=== PATIENT | female | born 1975 | race Caucasian/White ===

== ENCOUNTER → 2020-03-29 08:37 | Outpatient (CLI) | payer BC, SELFPAY ==
[2020-03-29 09:39] LABS: Add Manual Diff / Slide Review NO; Basophils Absolute Auto 0 /uL (0-100); Basophils Percent Auto 1.3 % (0-2); Eosinophils Absolute Auto 100 /uL (0-450); Eosinophils Percent Auto 2.1 % (2-4); Hematocrit 40.1 % (36-46); Hemoglobin 12.8 g/dL (12.0-16.0); Lymphocytes Absolute Auto 1100 /uL (1100-4500); Mean Corpuscular HGB Conc 31.9 % (30-36); Mean Corpuscular Hemoglobin 27.6 PG (26-34); Mean Corpuscular Volume 86.6 fL (80-100); Monocytes Absolute Auto 300 /uL (0-900); Monocytes Percent Auto 9.3 % (3-14); Neutrophils Absolute Auto 2000 /uL (1500-7000); Neutrophils Percent Auto 57.3 % (50-75); Platelet Count 203 X10^3/uL (150-400); Red Blood Cell Count 4.63 X10^6/uL (4.0-5.2); Red Cell Distribution Width 13.7 % (11.6-14.8); White Blood Cell Count 3.5 X10^3/uL (4.5-11.0)
[2020-03-29 09:47] LABS: HEMOLYSIS < 15 (0-50); Iron 65 ug/dL (37-170)
[2020-03-29 09:57] LABS: Percent Iron Saturation 19 % (15-50); Total Iron Binding Capacity 335 ug/dL (265-497); Transferrin 244 mg/dL (206-381)
[2020-03-29 10:02] LABS: Alanine Aminotransferase 12 IU/L (<35); Albumin 4.1 g/dL (3.5-5.0); Albumin Globulin Ratio 1.6 (1.0-2.8); Alkaline Phosphatase 49 U/L (38-126); Aspartate Aminotransferase 22 IU/L (14-36); BUN Creatinine Ratio 8.5 (6-22); Bilirubin Total 0.9 mg/dL (0.2-1.3); Blood Urea Nitrogen 7 mg/dL (7-17); Calcium 9.2 mg/dL (8.4-10.2); Carbon Dioxide 28 mmol/L (22-32); Chloride 106 mmol/L (98-107); Cholesterol 166 mg/dL (140-199); Estimated Glomerular Filt Rate > 60.0 mL/min (>60); Globulin 2.6 g/dL (1.7-4.1); Glucose 82 mg/dL (70-100); HDL Cholesterol 62 mg/dL (40-60); HEMOLYSIS < 15 (0-50); LDL Cholesterol Calculated 94 mg/dL (<100); Potassium 4.5 mmol/L (3.4-5.1); Sodium 138 mmol/L (137-145); Total Protein 6.7 g/dL (6.3-8.2); Triglycerides 52 mg/dL (35-150)
[2020-03-29 10:17] LABS: TSH w/ Reflex to FT4 1.83 uIU/mL (0.47-4.68)
[2020-03-29 10:37] LABS: Ferritin 19 ng/mL (6-137)
== END ==
PROVIDERS: PCP Family Medicine; Referring Provider Family Medicine; Visit Provider Family Medicine
DX: Z00.00 Encounter for general adult medical examination without abnormal findings (principal); D50.8 Other iron deficiency anemias; Z83.3 Family history of diabetes mellitus
CPT/HCPCS: 36415; 80053; 80061; 82728; 83036; 83540; 83550; 84443; 85025

== ENCOUNTER → 2020-04-21 08:57 | Outpatient (CLI) | payer BC, SELFPAY ==
--- NOTE | 2020-04-21 09:00 | DI.MG.S_ITS ---
BILATERAL DIGITAL SCREENING MAMMOGRAM 3D/2D WITH CAD: 04/21/2020 CLINICAL: Routine screening. Comparison is made to exams dated: 08/20/2016 mammogram, 10/27/2018 mammogram, and 10/29/2018 mammogram - outside location. The tissue of both breasts is heterogeneously dense. This may lower the sensitivity of mammography. Current study was also evaluated with a Computer Aided Detection (CAD) system. No significant masses, calcifications, or other findings are seen in either breast. There has been no significant interval change. IMPRESSION: NEGATIVE There is no mammographic evidence of malignancy. A 1 year screening mammogram is recommended. This exam was interpreted at Station ID: [id number]. NOTE: For mammograms, a report in lay terms will be sent to the patient. Approximately 15% of breast malignancies will not be visualized mammographically. In the management of a palpable breast mass, a negative mammogram must not discourage biopsy of a clinically suspicious lesion. Electronically Signed By: Anthony Araujo M.D., jr/roque:04/23/2020 09:50:49 letter sent: Normal Exam ACR BI-RADS Category 1: Negative 3341F
== END ==
PROVIDERS: PCP Family Medicine; Referring Provider Family Medicine; Visit Provider Family Medicine
DX: Z12.31 Encounter for screening mammogram for malignant neoplasm of breast (principal)
CPT/HCPCS: 77063; 77067

== ENCOUNTER → 2020-06-08 13:28 | Outpatient (CLI) | payer BC, SELFPAY ==
[2020-06-08] MEDS: COVID-19 VACC, Ad26(JANSSEN)/PF 0.5 ML IM (13:34)
== END ==
PROVIDERS: PCP Family Medicine; Visit Provider Internal Medicine
DX: Z23 Encounter for immunization (principal)
CPT/HCPCS: 0031A; 91303

== ENCOUNTER 2020-11-04 16:54 | Emergency (ER) | payer BC, SELFPAY ==
[2020-11-04 16:58] VITALS: BP 136/67; PULSE 60; RESP 18; TEMP 36.7; O2SAT 100
--- NOTE | 2020-11-04 17:01 | DI.RAD.S_ITS ---
PROCEDURE: XR THORACIC SPINE 3V INDICATIONS: fall TECHNIQUE: 3 views of the thoracic spine were acquired. COMPARISON: None. FINDINGS: Bones: No fractures or dislocations. No suspicious bony lesions. 12 pairs of ribs are noted, and appear intact where visualized. Accentuated thoracic kyphosis is seen. Minimal levoconvex thoracolumbar scoliotic curvature is seen. Soft tissues: No paravertebral stripe thickening. IMPRESSION: No significant acute plain film abnormality is seen. If there is point tenderness (or other clinical suspicion for a fracture not seen on these images) then a dedicated CT could be considered for further evaluation, if clinically appropriate. Dictated by: Tr Linares M.D. on 11/04/2020 at 16:45 Approved by: Tr Linares M.D. on 11/04/2020 at 16:46
--- NOTE | 2020-11-04 19:30 | ED.BACK ---
HPI - Back Pain/Injury General Chief Complaint: Back Pain/Injury Stated Complaint: FALL 10/18/20 BACK PAIN Time Seen by Provider: 11/04/20 19:29 Source: patient Mode of arrival: Ambulatory Limitations: no limitations History of Present Illness HPI Narrative: This is a 45-year-old female who comes with complaint of back pain patient states on October 18 she was pushing a vehicle up held help started when she slipped with her feet and hyperextended her back in the thoracic region. She has had some localized tenderness in the midthoracic region. Patient states the 1st week she had pain despite ibuprofen. She continues to have pain but when she takes ibuprofen is not painful. She came in today because it has continued and has not completely resolved although it is feeling better. She denies numbness, tingling or weakness. No loss bowel or bladder control. No other symptoms are noted or injuries. She denies any prior back issues of any significance. Denies any major medical issues besides iron-deficiency anemia. No allergies to medications. Related Data Home Medications Medication Instructions Recorded Confirmed No Known Home Medications 03/06/20 03/29/20 Allergies Allergy/AdvReac Type Severity Reaction Status Date / Time No Known Drug Allergies Allergy Unverified 03/29/20 08:24 Review of Systems Review of Systems ROS Unobtainable: All systems reviewed & are unremarkable except as noted in HPI and below Patient History Medical History Dysmenorrhea Family history of diabetes mellitus Iron deficiency anemia Preventative health care Surgical History H/O arthroscopy of left knee Social History Smoking Status: Former smoker Smoking Status: Former smoker alcohol intake frequency: 0-2 drinks per day Exam Narrative Exam Narrative: GENERAL: Alert and oriented x three, female in mild distress. HEENT: Head normocephalic, atraumatic, EOMI, pupils reactive, face symmetric, moist mucous membranes NECK: Supple, full range of motion CARDIOVASCULAR: Regular rate and rhythm without murmurs, rubs or gallops. RESPIRATORY: Breath sounds equal bilaterally, no wheezes rales or rhonchi. ABDOMEN: Soft, nontender. Normoactive bowel sounds all 4 quadrants. No guarding or rebound, rigidity, no mass : No CVA tenderness BACK: No cervical, thoracic or lumbar vertebral point tenderness. Patient has normal range of motion. Patient's gait is normal. Rectal exam is deferred. Muscle strength is 5/5 in lower extremities, DTRs are 2/4 and lower extremities. Dorsalis pedis and tibialis pulses are 2+ and lower extremities. Sensation is intact in the lower extremities. EXTREMITIES: Normal range of motion, no clubbing or edema. Neurovascularly intact NEUROLOGICAL: Cranial nerves II through XII grossly intact. Moving all extremities SKIN: Warm, dry, no petechiae, no rashes or lesions. Initial Vital Signs Initial Vital Signs: Vital Signs Temperature 98.1 F 11/04/20 16:58 Pulse Rate 60 11/04/20 16:58 Respiratory Rate 18 11/04/20 16:58 Blood Pressure 136/67 11/04/20 16:58 Pulse Oximetry 100 11/04/20 16:58 Course Orders Ordered: ED Orders 11/04/20 17:01 XR thoracic spine 3V Stat Vital Signs Vital signs: Vital Signs - 8 hr 11/04/20 16:58 Temperature 98.1 F Pulse Rate 60 Respiratory Rate 18 Blood Pressure 136/67 Pulse Oximetry 100 MDM - Back Pain/Injury Imaging Data thoracic xray: Radiologist's Impression: [place] [address] XRay Report Signed Patient: Layne Abbott MR#: [id number] : 1975 Acct:[id number] Age/Sex: 45 / F Date of Service: 11/04/20 Loc: ED Accession Number: [id number] ?? Procedure: XR thoracic spine 3V Ordering Provider: Angel Grajeda D.O. PROCEDURE:? XR THORACIC SPINE 3V ? INDICATIONS:? fall ? TECHNIQUE:? 3 views of the thoracic spine were acquired.? ? COMPARISON:? None. ? FINDINGS:? ? Bones:? No fractures or dislocations.? No suspicious bony lesions.? 12 pairs of ribs are noted, and appear intact where visualized.? Accentuated thoracic kyphosis is seen.? Minimal levoconvex thoracolumbar scoliotic curvature is seen.? ? Soft tissues:? No paravertebral stripe thickening.? ? ? IMPRESSION:? No significant acute plain film abnormality is seen. ? If there is point tenderness (or other clinical suspicion for a fracture not seen on these images) then a dedicated CT could be considered for further evaluation, if clinically appropriate. ? ? Dictated by: Tr Linares M.D. on 11/04/2020 at 16:45 ? ? Approved by: Tr Linares M.D. on 11/04/2020 at 16:46?? MDM Narrative Medical decision making narrative: 45-year-old female with a fall on the 17 of October with hyperextension type injury with continued localized thoracic discomfort which has been slowly improving. Patient states pain is still present when she takes ibuprofen resolved which is improved but was still present even when she took ibuprofen. Patient has normal range of motion. She does not have any specific worsening factors. Patient does not have any red flag symptoms. X-ray of thoracic region is negative and she notes that the discomfort is over the T10 region but on unable to reproduce it with palpation of the spine. Plan for continued watchful waiting. If patient continues to have resolution of her symptoms does not require any additional intervention. She continues to have pain follow-up with primary care and to return here for red flag symptoms. Discharge Plan Departure Patient Disposition: Home Clinical Impression: Back pain, thoracic Instructions: Thoracic Back Pain Activity Restrictions/Additional Instructions: Follow-up with your physician in the next week if you are not continuing to have improvement. Call for an appointment. Your x-ray imaging today does not show any acute changes to the bone. You do have some mild thoracic kyphosis and scoliotic curvatures but these are typically chronic and common changes to the bone structure You may continue with ibuprofen up to 800 mg every 8 hours as needed for pain if necessary. Continue with gentle stretching and range of motion as tolerated. Please return for fevers, sudden or worsening back pain, numbness, weakness loss of sensation, loss of bowel or bladder control, difficulty using her extremities or other new or concerning symptoms. Prescriptions: No Action No Known Home Medications RF: 0 Referrals: Karel Morocho DO [Primary Care Provider] -
== END 2020-11-04 19:51 | disposition home or self-care (01) ==
PROVIDERS: Emergency Provider Emergency Medicine; PCP Family Medicine
DX: M54.6 Pain in thoracic spine (principal)
CPT/HCPCS: 72072; 99281; 99283

== ENCOUNTER → 2021-03-20 08:01 | Outpatient (CLI) | payer BC, SELFPAY ==
[2021-03-20 10:11] LABS: Add Manual Diff / Slide Review NO; Basophils Absolute Auto 0 /uL (0-100); Basophils Percent Auto 1.2 % (0-2); Eosinophils Absolute Auto 100 /uL (0-450); Eosinophils Percent Auto 2.3 % (2-4); Hematocrit 35.4 % (36-46); Hemoglobin 11.8 g/dL (12.0-16.0); Lymphocytes Absolute Auto 800 /uL (1100-4500); Lymphocytes Percent Auto 24.9 % (25-40); Mean Corpuscular HGB Conc 33.4 % (30-36); Mean Corpuscular Hemoglobin 27.9 PG (26-34); Mean Corpuscular Volume 83.6 fL (80-100); Monocytes Absolute Auto 300 /uL (0-900); Monocytes Percent Auto 9.1 % (3-14); Neutrophils Absolute Auto 2000 /uL (1500-7000); Neutrophils Percent Auto 62.5 % (50-75); Platelet Count 173 X10^3/uL (150-400); Red Blood Cell Count 4.23 X10^6/uL (4.0-5.2); Red Cell Distribution Width 14.6 % (11.6-14.8); White Blood Cell Count 3.1 X10^3/uL (4.5-11.0)
[2021-03-20 10:26] LABS: Alanine Aminotransferase 12 IU/L (<35); Albumin Globulin Ratio 1.6 (1.0-2.8); Alkaline Phosphatase 44 U/L (38-126); Aspartate Aminotransferase 24 IU/L (14-36); BUN Creatinine Ratio 13.4 (6-22); Bilirubin Total 1.5 mg/dL (0.2-1.3); Blood Urea Nitrogen 9 mg/dL (7-17); Carbon Dioxide 29 mmol/L (22-32); Chloride 105 mmol/L (98-107); Cholesterol 154 mg/dL (140-199); Estimated Glomerular Filt Rate > 60.0 mL/min (>60); Globulin 2.5 g/dL (1.7-4.1); Glucose 84 mg/dL (70-100); HDL Cholesterol 82 mg/dL (40-60); HEMOLYSIS < 15 (0-50); LDL Cholesterol Calculated 64 mg/dL (<100); Potassium 4.1 mmol/L (3.4-5.1); Sodium 137 mmol/L (137-145); Total Protein 6.5 g/dL (6.3-8.2); Triglycerides 41 mg/dL (35-150)
[2021-03-20 10:45] LABS: HEMOLYSIS < 15 (0-50); Iron 114 ug/dL (37-170)
[2021-03-20 10:55] LABS: Percent Iron Saturation 32 % (15-50); Total Iron Binding Capacity 352 ug/dL (265-497); Transferrin 288 mg/dL (206-381)
[2021-03-20 10:58] LABS: Ferritin 14 ng/mL (6-137)
== END ==
PROVIDERS: PCP Family Medicine; Referring Provider Family Medicine; Visit Provider Family Medicine
DX: D50.8 Other iron deficiency anemias (principal)
CPT/HCPCS: 36415; 80053; 80061; 82728; 83540; 83550; 85025

== ENCOUNTER → 2021-04-26 08:11 | Outpatient (CLI) | payer OTHER, SELFPAY ==
--- NOTE | 2021-04-26 | DI.MG.S_ITS ---
BILATERAL DIGITAL SCREENING MAMMOGRAM 3D/2D WITH CAD: 04/26/2021 CLINICAL: Routine screening. Comparison is made to exam dated: 04/21/2020 [facility]. The tissue of both breasts is heterogeneously dense. This may lower the sensitivity of mammography. Current study was also evaluated with a Computer Aided Detection (CAD) system. There are grouped calcifications in the left breast central to the nipple anterior depth. No other significant masses, calcifications, or other findings are seen in either breast. IMPRESSION: INCOMPLETE: NEEDS ADDITIONAL IMAGING EVALUATION The grouped calcifications in the left breast are indeterminate. Spot magnification views are recommended. This exam was interpreted at Station ID: [id number]. NOTE: For mammograms, a report in lay terms will be sent to the patient. Approximately 15% of breast malignancies will not be visualized mammographically. In the management of a palpable breast mass, a negative mammogram must not discourage biopsy of a clinically suspicious lesion. Electronically Signed By: Yajaira Zarate M.D. lk/:04/29/2021 09:22:33 letter sent: Additional Imaging Needed ACR BI-RADS Category 0: Incomplete 3340F
== END ==
PROVIDERS: PCP Family Medicine; Referring Provider Family Medicine; Visit Provider Family Medicine
DX: Z12.31 Encounter for screening mammogram for malignant neoplasm of breast (principal)
CPT/HCPCS: 77063; 77067

== ENCOUNTER → 2021-05-15 09:20 | Outpatient (CLI) | payer OTHER, SELFPAY ==
--- NOTE | 2021-05-15 | DI.MG.S_ITS ---
UNILATERAL LEFT DIGITAL DIAGNOSTIC MAMMOGRAM 3D/2D WITH ADDITIONAL VIEWS: 05/15/2021 CLINICAL: Additional evaluation requested from prior study. Comparison is made to exams dated: 04/21/2020 mammogram, 04/26/2021 mammogram - [facility], and 10/29/2018 mammogram - outside location. The tissue of left breast is heterogeneously dense. This may lower the sensitivity of mammography. The previously seen calcifications in the left breast central to the nipple are no longer visualized, presumably secondary to artifact related to tomosynthesis technique. A single stable benign calcification is seen which localizes to the skin. No significant masses, calcifications, or other findings are seen in the breast. IMPRESSION: BENIGN There is no mammographic evidence of malignancy. Return to annual mammogram screening schedule is recommended. This exam was interpreted at Station ID: [id number]. NOTE: For mammograms, a report in lay terms will be sent to the patient. Approximately 15% of breast malignancies will not be visualized mammographically. In the management of a palpable breast mass, a negative mammogram must not discourage biopsy of a clinically suspicious lesion. Electronically Signed By: Jorge sexton/roque:05/15/2021 10:14:02 letter sent: Normal Exam ACR BI-RADS Category 2: Benign Finding(s) 3342F
== END ==
PROVIDERS: PCP Family Medicine; Referring Provider Family Medicine; Visit Provider Family Medicine
DX: R92.8 Other abnormal and inconclusive findings on diagnostic imaging of breast (principal)
CPT/HCPCS: 77065; G0279

== ENCOUNTER → 2022-03-19 07:47 | Outpatient (CLI) | payer OTHER, SELFPAY ==
[2022-03-19 09:16] LABS: Reticulocyte Count, Percent 1.2 % (1.1-2.6)
[2022-03-19 09:21] LABS: Add Manual Diff / Slide Review NO; Basophils Absolute Auto 100 /uL (0-100); Basophils Percent Auto 1.3 % (0-2); Eosinophils Absolute Auto 100 /uL (0-450); Eosinophils Percent Auto 3.2 % (2-4); Hemoglobin 11.4 g/dL (12.0-16.0); Lymphocytes Absolute Auto 900 /uL (1100-4500); Lymphocytes Percent Auto 21.5 % (25-40); Mean Corpuscular HGB Conc 32.5 % (30-36); Mean Corpuscular Hemoglobin 26.3 PG (26-34); Monocytes Absolute Auto 300 /uL (0-900); Monocytes Percent Auto 6.6 % (3-14); Neutrophils Absolute Auto 2800 /uL (1500-7000); Neutrophils Percent Auto 67.4 % (50-75); Platelet Count 182 X10^3/uL (150-400); Red Blood Cell Count 4.32 X10^6/uL (4.0-5.2); Red Cell Distribution Width 14.9 % (11.6-14.8); White Blood Cell Count 4.1 X10^3/uL (4.5-11.0)
[2022-03-19 09:42] LABS: Alanine Aminotransferase 13 IU/L (<35); Alkaline Phosphatase 53 U/L (38-126); Aspartate Aminotransferase 21 IU/L (14-36); BUN Creatinine Ratio 15.7 (6-22); Bilirubin Total 1.2 mg/dL (0.2-1.3); Blood Urea Nitrogen 11 mg/dL (7-17); Calcium 8.6 mg/dL (8.4-10.2); Carbon Dioxide 26 mmol/L (22-32); Chloride 105 mmol/L (98-107); Cholesterol 170 mg/dL (140-199); Estimated Glomerular Filt Rate > 60 mL/min (>60); Glucose 73 mg/dL (70-100); HDL Cholesterol 78 mg/dL (40-60); HEMOLYSIS < 15 (0-50); Iron 45 ug/dL (37-170); LDL Cholesterol Calculated 83 mg/dL (<100); Lactate Dehydrogenase 143 U/L (120-246); Sodium 139 mmol/L (137-145); Total Protein 7.1 g/dL (6.3-8.2); Triglycerides 43 mg/dL (35-150)
[2022-03-19 09:52] LABS: Percent Iron Saturation 11 % (15-50); Total Iron Binding Capacity 407 ug/dL (265-497); Transferrin 304 mg/dL (206-381)
[2022-03-19 10:10] LABS: TSH w/ Reflex to FT4 2.36 uIU/mL (0.47-4.68)
[2022-03-19 10:13] LABS: Ferritin 11 ng/mL (6-137)
[2022-03-21 16:46] LABS: Albumin 4.3 g/dL (3.5-5.0); Albumin Globulin Ratio 1.5 (1.0-2.8); Globulin 2.8 g/dL (1.7-4.1)
== END ==
PROVIDERS: PCP Family Medicine; Referring Provider Family Medicine; Visit Provider Family Medicine
DX: D50.9 Iron deficiency anemia, unspecified (principal); D61.818 Other pancytopenia; Z83.3 Family history of diabetes mellitus; D50.8 Other iron deficiency anemias
CPT/HCPCS: 36415; 80053; 80061; 82728; 83540; 83550; 83615; 84443; 85025; 85045

== ENCOUNTER → 2022-05-12 11:45 | Outpatient (CLI) | payer OTHER, SELFPAY ==
--- NOTE | 2022-05-12 | DI.MG.S_ITS ---
BILATERAL DIGITAL SCREENING MAMMOGRAM 3D/2D WITH CAD: 05/12/2022 CLINICAL: Routine screening. Family history of breast cancer. Comparison is made to exams dated: 05/15/2021 mammogram, 04/26/2021 mammogram, 04/21/2020 mammogram - [facility], and 10/29/2018 mammogram - outside location. Both breasts are heterogeneously dense, which may obscure small masses (category c / 51-75% glandular tissue). Current study was also evaluated with a Computer Aided Detection (CAD) system. No significant masses, calcifications, or other findings are seen in either breast. There has been no significant interval change. IMPRESSION: NEGATIVE There is no mammographic evidence of malignancy. A 1 year screening mammogram is recommended. MRI screening also recommended due to elevated lifetime risk. Based on Tyrer-Cuzick model (a risk assessment model), the patient's lifetime risk is 22.0% and her 10 year risk is 4.2%. If a patient has an elevated risk, a more comprehensive evaluation should be considered and/or a referral to a genetic counselor. The [employer], [employer], and NCCN Guidelines advise the consideration of Breast MRI as an adjunct to screening mammography in patients whose Lifetime risk to develop breast cancer is 20% or higher. This exam was interpreted at Station ID: [id number]. NOTE: For mammograms, a report in lay terms will be sent to the patient. Approximately 15% of breast malignancies will not be visualized mammographically. In the management of a palpable breast mass, a negative mammogram must not discourage biopsy of a clinically suspicious lesion. Electronically Signed By: Aleksander Mcmillan M.D. lc/:05/12/2022 13:19:59 letter sent: Normal Exam ACR BI-RADS Category 1: Negative 3341F
== END ==
PROVIDERS: PCP Family Medicine; Referring Provider Family Medicine; Visit Provider Family Medicine
DX: Z12.31 Encounter for screening mammogram for malignant neoplasm of breast (principal); Z80.3 Family history of malignant neoplasm of breast
CPT/HCPCS: 77063; 77067

== ENCOUNTER → 2022-11-10 10:37 | Outpatient (CLI) | payer OTHER, SELFPAY ==
[2022-11-10 11:10] LABS: Add Manual Diff / Slide Review NO; Basophils Absolute Auto 0 /uL (0-100); Basophils Percent Auto 0.8 % (0-2); Eosinophils Absolute Auto 100 /uL (0-450); Hematocrit 36.5 % (36-46); Hemoglobin 12.3 g/dL (12.0-16.0); Lymphocytes Absolute Auto 900 /uL (1100-4500); Lymphocytes Percent Auto 17.9 % (25-40); Mean Corpuscular HGB Conc 33.8 % (30-36); Mean Corpuscular Hemoglobin 28.7 PG (26-34); Mean Corpuscular Volume 84.9 fL (80-100); Monocytes Absolute Auto 400 /uL (0-900); Monocytes Percent Auto 7.3 % (3-14); Neutrophils Absolute Auto 3800 /uL (1500-7000); Platelet Count 182 X10^3/uL (150-400); Red Cell Distribution Width 13.2 % (11.6-14.8); White Blood Cell Count 5.3 X10^3/uL (4.5-11.0)
[2022-11-10 11:31] LABS: Alanine Aminotransferase 15 IU/L (<35); Albumin 4.3 g/dL (3.5-5.0); Albumin Globulin Ratio 1.8 (1.0-2.8); Alkaline Phosphatase 60 U/L (38-126); Aspartate Aminotransferase 23 IU/L (14-36); BUN Creatinine Ratio 15.9 (6-22); Bilirubin Total 1.2 mg/dL (0.2-1.3); Blood Urea Nitrogen 11 mg/dL (7-17); Carbon Dioxide 26 mmol/L (22-32); Chloride 103 mmol/L (98-107); Estimated Glomerular Filt Rate > 60 mL/min (>60); Globulin 2.4 g/dL (1.7-4.1); Glucose 84 mg/dL (70-100); HEMOLYSIS < 15 (0-50); Potassium 3.7 mmol/L (3.4-5.1); Sodium 136 mmol/L (137-145); Total Protein 6.7 g/dL (6.3-8.2)
== END ==
PROVIDERS: PCP Family Medicine; Referring Provider Family Medicine; Visit Provider Family Medicine
DX: D50.8 Other iron deficiency anemias (principal)
CPT/HCPCS: 36415; 80053; 85025

== ENCOUNTER → 2023-05-18 15:33 | Outpatient (CLI) | payer OTHER, SELFPAY ==
--- NOTE | 2023-05-18 15:35 | DI.RAD.S_ITS ---
PROCEDURE: XR FOOT RT MIN 3V INDICATIONS: Right foot pain TECHNIQUE: 3 views of the foot were acquired. COMPARISON: None. FINDINGS: Bones: No fractures or dislocations. No suspicious bony lesions. Soft tissues: No tibiotalar joint effusion. Achilles tendon appears normal. IMPRESSION: No acute bony abnormality. Dictated by: Stephen Mondragon M.D. on 05/18/2023 at 16:08 Approved by: Stephen Mondragon M.D. on 05/18/2023 at 16:11
== END ==
LOC: RAD 15:35
PROVIDERS: PCP Family Medicine; Referring Provider Physician Assistant Surgical; Visit Provider Physician Assistant Surgical
DX: S99.921A Unspecified injury of right foot, initial encounter (principal); X58.XXXA Exposure to other specified factors, initial encounter
CPT/HCPCS: 73630

== ENCOUNTER → 2023-05-20 07:35 | Outpatient (CLI) | payer OTHER, SELFPAY ==
--- NOTE | 2023-05-20 07:36 | DI.MG.S_ITS ---
BILATERAL DIGITAL SCREENING MAMMOGRAM 3D/2D WITH CAD: 05/20/2023 CLINICAL: Routine screening. Family history of breast cancer. Comparison is made to exams dated: 05/12/2022 mammogram, 05/15/2021 mammogram, 04/26/2021 mammogram, and 04/21/2020 mammogram - [facility]. Both breasts are heterogeneously dense, which may obscure small masses (category c / 51-75% glandular tissue). Current study was also evaluated with a Computer Aided Detection (CAD) system. No significant masses, calcifications, or other findings are seen in either breast. There has been no significant interval change. IMPRESSION: NEGATIVE There is no mammographic evidence of malignancy. A 1 year screening mammogram is recommended. Based on Tyrer-Cuzick model (a risk assessment model), the patient's lifetime risk is 22.1% and her 10 year risk is 4.5%. If a patient has an elevated risk, a more comprehensive evaluation should be considered and/or a referral to a genetic counselor. The [employer] [place], [employer], and NCCN Guidelines advise the consideration of Breast MRI as an adjunct to screening mammography in patients whose Lifetime risk to develop breast cancer is 20% or higher. This exam was interpreted at Station ID: [id number]. NOTE: For mammograms, a report in lay terms will be sent to the patient. Approximately 15% of breast malignancies will not be visualized mammographically. In the management of a palpable breast mass, a negative mammogram must not discourage biopsy of a clinically suspicious lesion. Electronically Signed By: Armin talbert/roque:05/20/2023 12:08:04 letter sent: Normal Exam ACR BI-RADS Category 1: Negative 3341F
== END ==
LOC: MAMMO 07:35
PROVIDERS: PCP Family Medicine; Referring Provider Family Medicine; Visit Provider Family Medicine
DX: Z12.31 Encounter for screening mammogram for malignant neoplasm of breast (principal); Z80.3 Family history of malignant neoplasm of breast; R92.333 Mammographic heterogeneous density, bilateral breasts
CPT/HCPCS: 77063; 77067

== ENCOUNTER → 2023-10-05 07:46 | Outpatient (CLI) | payer OTHER, SELFPAY ==
[2023-10-05 09:49] LABS: Add Manual Diff / Slide Review NO; Basophils Absolute Auto 100 /uL (0-100); Eosinophils Absolute Auto 100 /uL (0-450); Eosinophils Percent Auto 2.3 % (2-4); Hematocrit 39.3 % (36-46); Hemoglobin 13.3 g/dL (12.0-16.0); Lymphocytes Absolute Auto 1100 /uL (1100-4500); Lymphocytes Percent Auto 33.7 % (25-40); Mean Corpuscular HGB Conc 33.8 % (30-36); Mean Corpuscular Hemoglobin 28.8 PG (26-34); Mean Corpuscular Volume 85.2 fL (80-100); Monocytes Absolute Auto 300 /uL (0-900); Neutrophils Absolute Auto 1700 /uL (1500-7000); Platelet Count 174 X10^3/uL (150-400); Red Blood Cell Count 4.62 X10^6/uL (4.0-5.2); Red Cell Distribution Width 13.2 % (11.6-14.8); White Blood Cell Count 3.1 X10^3/uL (4.5-11.0)
[2023-10-05 10:05] LABS: HEMOLYSIS < 15 (0-50); Iron 57 ug/dL (37-170)
[2023-10-05 10:08] LABS: Alanine Aminotransferase 12 IU/L (<35); Albumin 4.5 g/dL (3.5-5.0); Albumin Globulin Ratio 1.8 (1.0-2.8); Alkaline Phosphatase 59 U/L (38-126); Aspartate Aminotransferase 23 IU/L (14-36); BUN Creatinine Ratio 13.8 (6-22); Bilirubin Total 1.2 mg/dL (0.2-1.3); Blood Urea Nitrogen 12 mg/dL (7-17); Calcium 9.4 mg/dL (8.4-10.2); Carbon Dioxide 27 mmol/L (22-32); Chloride 106 mmol/L (98-107); Cholesterol 181 mg/dL (140-199); Estimated Glomerular Filt Rate > 60 mL/min (>60); Globulin 2.5 g/dL (1.7-4.1); Glucose 82 mg/dL (70-100); HDL Cholesterol 87 mg/dL (40-60); HEMOLYSIS < 15 (0-50); LDL Cholesterol Calculated 86 mg/dL (<100); Potassium 4.7 mmol/L (3.4-5.1); Sodium 139 mmol/L (137-145); Triglycerides 39 mg/dL (35-150)
[2023-10-05 10:17] LABS: Percent Iron Saturation 16 % (15-50); Total Iron Binding Capacity 351 ug/dL (265-497); Transferrin 270 mg/dL (206-381)
[2023-10-05 10:39] LABS: TSH w/ Reflex to FT4 1.99 uIU/mL (0.47-4.68)
[2023-10-05 10:43] LABS: Ferritin 16 ng/mL (6-137)
[2023-10-06 03:38] LABS: Apolipoprotein B 77 mg/dL (<90)
== END ==
PROVIDERS: PCP Family Medicine; Referring Provider Family Medicine; Visit Provider Family Medicine
DX: Z00.00 Encounter for general adult medical examination without abnormal findings (principal); L65.9 Nonscarring hair loss, unspecified; N95.1 Menopausal and female climacteric states; D61.818 Other pancytopenia
CPT/HCPCS: 36415; 80053; 80061; 82172; 82728; 83540; 83550; 84443; 85025

== ENCOUNTER 2024-01-14 07:41 | Day surgery (SDC) | payer OTHER, SELFPAY ==
[2024-01-14 08:05] VITALS: BP 107/71; PULSE 65; RESP 12; TEMP 36.8; O2SAT 100
--- NOTE | 2024-01-14 08:12 | P.HP_ITS ---
History of Present Illness History of Present Illness Date Patient Seen: 01/14/24 Time Patient Seen: 08:12 Chief complaint: SDC Narrative: Layne is a 48-year-old woman who is here for a colonoscopy. It was her first colon cancer screening. She has no family history of colon cancer. [facility], LAT[facility] Medical History (Updated 01/14/24 @ 08:13 by Tyson Stanton MD) Dysmenorrhea Preventative health care Family history of diabetes mellitus Iron deficiency anemia Surgical History (Updated 07/02/23 @ 13:22 by Charlene Patel) H/O unilateral salpingectomy H/O arthroscopy of left knee Family History (Updated 07/03/23 @ 14:45 by Stefania Stewart PA-C) Aunt Cancer Social History Smoking Status: Former smoker alcohol intake: current Meds Home Medications and Allergies Home Medications Medication Instructions Recorded Confirmed Type ferrous sulfate 142 mg (45 mg 142 mg PO DAILY #90 tabs 03/14/22 09/28/23 Rx iron) tablet,extended release (Slow Fe) estradiol 0.5 mg tablet 0.5 mg PO DAILY #90 tabs 09/28/23 09/28/23 Rx progesterone micronized 100 mg 100 mg PO BEDTIME #90 caps 09/28/23 09/28/23 Rx capsule sodium,potassium,mag sulfates 17.5 See Rx Instructions PO .COMPLEX 09/30/23 Rx gram-3.13 gram-1.6 gram oral soln #354 mL (Suprep Bowel Prep Kit) Allergies Allergy/AdvReac Type Severity Reaction Status Date / Time No Known Drug Allergies Allergy Verified 01/14/24 07:49 Exam Vital Signs (past 8 hours): - 01/14/24 08:05 Temperature 98.2 F Pulse Rate 65 Respiratory Rate 12 Blood Pressure 107/71 Pulse Oximetry 100 Oxygen Delivery Method Room Air Oxygen Delivery Method Room Air Const General: healthy appearing Assessment & Plan Assessment and plan (1) Colon cancer screening: Status: Acute Plan Colonoscopy Time-Based Coding :: [TOTAL MINUTES] spent with patient and on the chart (including review of chart, obtaining history, exam, reviewing outside data, placing orders, documenting exam and treatment plan, and counseling patient) on [DATE].
--- NOTE | 2024-01-14 09:25 | PM.OP.COLON ---
Operative Date/Time/Diagnoses Date of procedure: 01/14/24 Time of procedure: 09:25 Pre-op diagnosis: Colon cancer screening Post-op diagnosis: same Procedure & Clinicians Study performed: Colonoscopy Same procedure as scheduled: Yes Surgeon: Tyson Stanton Procedure Notes Procedure in detail: Surgeon: Tyson Stanton MD Anesthesia: [place] MD Procedure: The patient was brought to the endoscopy suite, placed in left lateral decubitus position. The patient was connected to monitoring devices. A time-out was performed. Sedation was administered. Once the patient was adequately sedated, a digital rectal exam was performed and was normal. The scope was then inserted and advanced to the cecum where the appendiceal orifice was identified and photographed. The scope was then slowly withdrawn over greater than 6 minutes. The mucosa was thoroughly inspected. No abnormalities were found. The scope was retroflexed in the rectum. The scope was straightened and removed. The patient was awakened and brought to recovery. Scope withdrawal time: 8 minutes Sedation time: 17 minutes EBL: 0 Findings: Normal colon Post-procedure Recommendations: Colonoscopy in 10 years Disposition: PACU
[2024-01-14 09:30] VITALS: BP 92/70; PULSE 70; RESP 20; TEMP 36.7; O2SAT 97
[2024-01-14 09:35] VITALS: BP 94/62; PULSE 61; RESP 18; TEMP 36.7; O2SAT 98
[2024-01-14 09:45] VITALS: BP 99/65; PULSE 62; RESP 15; TEMP 36.6; O2SAT 99
== END 2024-01-14 10:01 | disposition home or self-care (01) ==
PROVIDERS: PCP Family Medicine; Referring Provider Surgery; Visit Provider Surgery
PROC: 0DJD8ZZ Inspection of Lower Intestinal Tract, Via Natural or Artificial Opening Endoscopic (ICD-10-PCS; CPT 45378; principal; 2024-01-14 08:45)
DX: Z12.11 Encounter for screening for malignant neoplasm of colon (principal)
CPT/HCPCS: 45378; J2704

== ENCOUNTER → 2024-06-01 15:25 | Outpatient (CLI) | payer OTHER, SELFPAY ==
--- NOTE | 2024-06-01 15:29 | DI.MG.S_ITS ---
MM screening mammo BI: 06/01/2024. BI-RADS: 1 CLINICAL: 49-year old female for bilateral screening mammogram. Tyrer-Cuzick lifetime risk of 17.6%. No personal or first-degree family history of breast cancer. Current reported family history of breast cancer: maternal aunt. PRIOR EXAMS 05/20/2023, 05/12/2022, 05/15/2021, 04/26/2021, 04/21/2020. MAMMOGRAPHY TECHNIQUE: 2D and 3D (tomosynthesis) digital mammographic views obtained, with additional images as needed for full coverage. Current study was also evaluated with a Computer Aided Detection (CAD) system. DENSITY C. The breasts are heterogeneously dense, which may obscure small masses. MAMMOGRAPHY FINDINGS Bilateral: No suspicious mass, asymmetry, microcalcification, or other abnormality seen. No significant change from comparison. IMPRESSION: * No evidence of malignancy. RECOMMENDATIONS Bilateral * Annual screening mammography. OVERALL ASSESSMENT CATEGORY BI-RADS-1: Negative. The [employer] recommends annual screening mammography beginning at age 40 for women with average risk of breast cancer. ELECTRONICALLY SIGNED: Sharon Solano M.D. on 06/01/2024 at 09:11:12 PM PT Interpreting Station ID: [id number]
== END ==
PROVIDERS: PCP Family Medicine; Referring Provider Family Medicine; Visit Provider Family Medicine
DX: Z12.31 Encounter for screening mammogram for malignant neoplasm of breast (principal); Z80.3 Family history of malignant neoplasm of breast; R92.333 Mammographic heterogeneous density, bilateral breasts
CPT/HCPCS: 77063; 77067